=== PATIENT | male | born 1995 | race Caucasian/White ===

== ENCOUNTER → 2020-03-19 | Outpatient (CLI) | payer OTHER ==
[~2020-03-19] MED LIST: ANAPROX DS550 MG PO; AZELASTINE137 MCG/0. NS; BACTRIM DS TAB1 EACH PO; CEFDINIR300 MG PO; FLONASE 0.05%50 MCG NASAL; HYDROCODONE-AP1 EAC6 PO; IBUPROFEN 800800 MG PO; NORFLEX100 MG PO; VIVANCE; VYVANSE40 MG PO; VYVANSE50 MG PO; ZPAK PO
== END ==
LOC: M.LAB 15:36
PROVIDERS: ATTEND Orthopaedic Surgery
DX: Z01.812 Encounter for preprocedural laboratory examination (principal); Z20.828 Contact with and (suspected) exposure to other viral communicable diseases